=== PATIENT | male | born 1950 | race Caucasian/White ===

== ENCOUNTER → 2020-10-07 10:28 | Outpatient (BNVA) | payer MEDICARE, BC, SELFPAY | PROVIDERS: Visit Provider Internal Medicine | DX: R03.0 Elevated blood-pressure reading, without diagnosis of hypertension (principal); R35.1 Nocturia; R30.0 Dysuria; K75.81 Nonalcoholic steatohepatitis (NASH); Z12.11 Encounter for screening for malignant neoplasm of colon; Z01.818 Encounter for other preprocedural examination; M19.90 Unspecified osteoarthritis, unspecified site | CPT/HCPCS: 80053; 80061; 81003; 83036; 84443; 85025; 87077; 87086; 87184 ==

== ENCOUNTER → 2020-10-12 10:06 | Outpatient (BNVA) | payer MEDICARE, BC, SELFPAY | PROVIDERS: Visit Provider Internal Medicine | DX: Z11.59 Encounter for screening for other viral diseases (principal); Z01.818 Encounter for other preprocedural examination | CPT/HCPCS: 87635 ==

== ENCOUNTER 2020-10-18 07:56 | Day surgery (SDC) | payer MEDICARE, BC, SELFPAY ==
[2020-10-14 15:00] VITALS: BMI 32.5
[2020-10-18 08:12] VITALS: BP 162/86; PULSE 54; RESP 18; TEMP 36.4; O2SAT 98
[2020-10-18] MEDS: sodium chloride 0.9% 1,000 ML 30 ML IV (08:24)
--- NOTE | 2020-10-18 08:41 | ANES.PREANE2 ---
Pre-Anesthetic Assessment Pre-Anesthetic Assessment: Height/Weight: Height 1.75 m Weight 99.79 kg Temp Pulse Resp BP Pulse Ox 97.6 F 54 L 18 162/86 98 10/18/20 08:12 10/18/20 08:12 10/18/20 08:12 10/18/20 08:12 10/18/20 08:12 Preop Diagnosis: screening Proposed Procedure: Operation Date: 10/18/20 09:00 Proposed Procedures p Colonoscopy 49003 z12.11(Not Applicable) - Jose G Alfredo MD Familial anesthetic complications: none Was Beta Iwona taken within 24 hours: N/A Last intake: Intake NPO > 8 hrs Last Liquid Date 10/17/20 Last Liquid Time 18:00 Last Solid Date 10/16/20 Last Solid Time 17:00 Social: Social History: No alcohol and No tobacco Exam: Pre-Anes Outpt Exam: alert, oriented x 3, clear to auscultation bilaterally and regular rate & rhythm Airway: Cervical ROM: WNL MP: 4 Dentition: Other (missing teeth) Anesthetic Plan: ASA status: 1 Anesthesia: MAC Risk of > 500 ml blood loss (7ml/kg in children): No Meds/Allergies Current Medications: Current Medications Generic Name Dose Route Start Last Admin Trade Name Freq PRN Reason Stop Dose Admin Sodium Chloride 1,000 mls @ 30 ml s/hr 10/18/20 08:15 10/18/20 08:24 Sodium Chloride 0.9% IV 10/19/20 08:14 30 mls/hr .Q24H MELBA Administration PFSH Anesthesia PFSH: Medical History (Updated 10/07/20 @ 10:48 by Jose G Alfredo MD) Prostate cancer Family History (Updated 10/07/20 @ 09:40 by LYDIA Rodriguez) Grandfather Diabetes Mother Cancer Social History (Updated 10/07/20 @ 09:41 by LYDIA Rodriguez) Smoking and tobacco status: never smoked Alcohol intake: never Adopted: No Marital status: Number of children: 2 service: No History of recent travel: No Current gender identity: Male Data Anesthesia Cardiac Studies: No Data to Display
--- NOTE | 2020-10-18 09:19 | W.PM.OPSUD ---
Surgery/Procedure H&P Update DATE OF PROCEDURE: October 18, 2020 DATE H&P PERFORMED: 10/07/20 PREOP DIAGNOSIS: screening PLANNED PROCEDURE: Operation Date: 10/18/20 09:00 Proposed Procedures p Colonoscopy 60910 z12.11(Not Applicable) - Jose G Alfredo MD
[2020-10-18 09:43] VITALS: BP 133/73; PULSE 58; RESP 18; TEMP 36.7; O2SAT 95
[2020-10-18 09:59] VITALS: BP 124/77; PULSE 59; RESP 16; O2SAT 98
--- NOTE | 2020-10-18 15:06 | ANE.PACU2 ---
Inpatient post-anesthesia follow up: Airway intact: Yes Vital signs: Temperature 98.1 F Pulse Rate 59 Respiratory Rate 16 Blood Pressure 124/77 Pulse Oximetry 98 Oxygen Delivery Me thod Room Air Oxygen Flow Rate Fraction of Inspir ed Oxygen Hydration adequate: Yes Nausea and vomiting: No Pain level: 1 Mental status: Baseline
== END 2020-10-18 10:09 | disposition home or self-care (01) ==
PROVIDERS: Visit Provider Internal Medicine
PROC: 0DJD8ZZ Inspection of Lower Intestinal Tract, Via Natural or Artificial Opening Endoscopic (ICD-10-PCS; CPT 45378; principal; 2020-10-18 09:00)
DX: Z12.11 Encounter for screening for malignant neoplasm of colon (principal); Z85.46 Personal history of malignant neoplasm of prostate; M19.90 Unspecified osteoarthritis, unspecified site
CPT/HCPCS: 12345; G0121; J2704; J7030

== ENCOUNTER → 2021-09-16 10:47 | Outpatient (BNVA) | payer MEDICARE, BC, SELFPAY | PROVIDERS: Visit Provider Nurse Practitioner Family | DX: Z20.822 Contact with and (suspected) exposure to COVID-19 (principal) | CPT/HCPCS: 87635 ==

== ENCOUNTER 2023-01-26 06:00 | Outpatient (CLI) | payer MEDICARE, SELFPAY ==
--- NOTE | 2023-01-26 06:10 | US_ITS ---
WS: [id number] ABDOMINAL ULTRASOUND REASON FOR EXAM: ?AAA ABD PAIN COMPARISON: None available. ORDER DATE: 01/26/2023 6:10 AM TECHNIQUE: Grayscale and Doppler ultrasound examination of the abdomen. FINDINGS: Pancreas: Unremarkable Abdominal aorta and IVC: Unremarkable. Aortic diameter 2 cm Liver: Liver measures 15.1 cm in length. No focal abnormality or bile duct dilatation Gallbladder: Gallbladder unremarkable with wall thickness measures 0.2 mm. Common bile duct diameter 4.2 mm Left kidney: Left kidney measures 12.0 cm x 5.4 cm x 5.0 cm. Normal echotexture Right kidney: Right kidney measures 10.4 cm x 4.8 cm x 4.4 cm. Normal echotexture Spleen: Spleen measures 10.9 cm in length with normal echotexture US/US abdomen complete* [id number] IMPRESSION: No evidence of focal abnormality.
== END 2023-01-26 06:01 | disposition home or self-care (01) ==
LOC: RAD 06:02
PROVIDERS: PCP Internal Medicine; Visit Provider Electrodiagnostic Medicine
DX: Z13.6 Encounter for screening for cardiovascular disorders (principal)
CPT/HCPCS: 76700